=== PATIENT | male | born 1985 | race Caucasian/White ===

== ENCOUNTER 2019-01-23 08:33 | Emergency (ER) | payer OTHER, SELFPAY ==
--- NOTE | 2019-01-23 09:07 | ERPHSYRPT ---
- History of Present Illness Time Seen by Provider: 01/23/19 08:50 Source: patient Exam Limitations: no limitations Patient Subjective Stated Complaint: Pt states "I was bitten by a dog yesterday at work." Triage Nursing Assessment: Pt presented through the front, alert and oriented X 3, skin pwd. Pt ambulates with an upright steady gait, able to speak in clear full sentences. Pt in no apparent respiratory distress. Pt has abrasion noted to medial left knee Physician History: 33 y/o white male presents to ED one day after dog bite to left lower leg. pts tetanus status utd. nkda. Timing/Duration: yesterday Quality: burning (mild) Severity: mild Location: extremities (left lower ext) Possible Causes: other (dog bite) Associated Symptoms: denies symptoms Allergies/Adverse Reactions: No Known Drug Allergies Allergy (Verified 01/23/19 08:42) Hx Tetanus, Diphtheria Vaccination/Date Given: No Hx Influenza Vaccination/Date Given: No Hx Pneumococcal Vaccination/Date Given: No Immunizations Up to Date: Yes - Review of Systems Constitutional: No Symptoms Eyes: No Symptoms Ears, Nose, & Throat: No Symptoms Respiratory: No Symptoms Cardiac: No Symptoms Abdominal/Gastrointestinal: No Symptoms Genitourinary Symptoms: No Symptoms Musculoskeletal: No Symptoms Skin: No Symptoms - Past Medical History Pertinent Past Medical History: No Neurological History: No Pertinent History ENT History: No Pertinent History Cardiac History: No Pertinent History Respiratory History: No Pertinent History Endocrine Medical History: No Pertinent History Musculoskeletal History: No Pertinent History GI Medical History: No Pertinent History History: No Pertinent History Psycho-Social History: No Pertinent History Male Reproductive Disorders: No Pertinent History - Past Surgical History Past Surgical History: No Neuro Surgical History: No Pertinent History Cardiac: No Pertinent History Respiratory: No Pertinent History Gastrointestinal: No Pertinent History Genitourinary: No Pertinent History Musculoskeletal: No Pertinent History Male Surgical History: No Pertinent History - Social History Smoking Status: Current every day smoker How long have you smoked: years Exposure to second hand smoke: Yes Drug Use: none Patient Lives Alone: No - Nursing Vital Signs Nursing Vital Signs: Initial Vital Signs Temperature 97.9 F 01/23/19 08:36 Pulse Rate 82 01/23/19 08:36 Respiratory Rate 18 01/23/19 08:36 Blood Pressure 101/64 01/23/19 08:36 O2 Sat by Pulse Oximetry 97 01/23/19 08:36 Pain Scale Pain Intensity 0 - Physical Exam General Appearance: no apparent distress, alert Eye Exam: PERRL/EOMI, eyes nml inspection Ears, Nose, Throat Exam: normal ENT inspection, moist mucous membranes Neck Exam: normal inspection, non-tender, supple, full range of motion Respiratory Exam: No chest tenderness Gastrointestinal/Abdomen Exam: No tenderness Rectal Exam: not done Back Exam: normal inspection, normal range of motion, No CVA tenderness, No vertebral tenderness Extremity Exam: tenderness (mild), other (localized superficial swelling and mild redness in area of superficial abrasions. no puncture wounds) Neurologic Exam: alert, oriented x 3, cooperative, research chemist II-XII nml as tested Skin Exam: other (see above. no abscess, no drainage or odor) Lymphatic Exam: No adenopathy SpO2 Interpretation: normal SpO2: 97 O2 Delivery: Room Air - Progress Progress: unchanged Counseled pt/family regarding: diagnosis, need for follow-up - Departure Departure Disposition: Home Clinical Impression: Abrasion, Dog bite Condition: Stable Critical Care Time: No Referrals: DOCTOR,NO FAMILY [Primary Care Provider] - Additional Instructions: keep area clean daily with soap and water. use topical antibiotic of choice one to two times daily to area. if worse at any time or not improving after 48 hours fill and take augmentin prescription with food. Prescriptions: Amoxicillin/Potassium Clav [Augmentin 500-125 Tablet] 1 each PO Q8H #15 tablet
[2019-01-23 09:47] VITALS: BP 125/76; PULSE 72; O2SAT 98
== END 2019-01-23 09:48 | disposition home or self-care (01) ==
LOC: ED 08:33
DX: S80.212A Abrasion, left knee, initial encounter (principal); W54.0XXA Bitten by dog, initial encounter; Y93.89 Activity, other specified; Y92.89 Other specified places as the place of occurrence of the external cause; Y99.0 Civilian activity done for income or pay
CPT/HCPCS: 99283